=== PATIENT | female | born 1990 | race Caucasian/White ===

== ENCOUNTER 2018-01-21 10:31 | Emergency (ER) | payer BC ==
--- NOTE | 2018-01-21 11:05 | EDPHY ---
General Time Seen by Provider: 01/21/18 10:44 Narrative: CHIEF COMPLAINT: Wound check HISTORY OF PRESENT ILLNESS: Patient presents by private vehicle with complaints of wound check and delayed closure. She reports a dog bite to left index finger greater than 48 hr ago. She was seen here and treated for this. Tdap updated. She has been on Augmentin since then. She has minimal pain. She has no redness, warmth or fever. No difficulty been or straightening the finger. No streaking of the hands, wrist or forearm. No fever. No chills. She denies systemic complaints. She is here asking for the wound to be evaluated for closure. No associated complaints or modifying factors. TIME OF INJURY: Greater than 48 hr ago TETANUS STATUS: Updated 2 days ago MEDICAL/SURGICAL/SOCIAL HISTORY: Uncomplicated. Right-hand dominant. Nonsmoker. Nondiabetic. REVIEW OF SYSTEMS: Ten systems reviewed and are negative unless otherwise noted in the HPI EXAMINATION General Appearance: Alert, no distress Head: normocephalic, atraumatic Cardiovascular: Radial pulses are symmetric. Brisk cap refill the fingers left hand with no cyanosis or pallor. Neurological: A&O, 2 point and light sensory symmetric, inspector insulation and interossei strength symmetric Skin: Warm and dry, no rash. 2 cm laceration with jagged margins and 2 mm distraction of the borders. No foreign body. No bleeding. No surrounding cellulitis, warmth, induration or purulence. Extremities: Nontender, no pedal edema DIFFERENTIAL DIAGNOSES: Including but not limited to laceration, laceration complication, laceration foreign body, laceration with deep tissue injury MDM: 10:45 a.m. Visit for wound evaluation and delayed closure after dog bite greater than 48 hr ago. Her finger appears to have had too much bacitracin on it but there is no signs of infection or dehiscence. No signs of lymphangitis, osteomyelitis or tenosynovitis. We discussed the risk of closure at 48 rather than 72 hr and she would like to proceed with this. She is nonsmoker nondiabetic. She has no evidence of vascular compromise. I have administered a digital block. We will irrigate the wound and evaluate. 11:25 a.m. Wounds have been irrigated and I have re-evaluated. There is no signs of infection. Proceed with closure of the finger without difficulty. We discussed specific wound care. We discussed continuation of Augmentin. We discussed ED precautions for redness, warmth, fever, difficulty been or straightening the finger. We discussed light activity for the duration of the sutures. She will return here in 7-10 days for suture removal. She is comfortable this plan. She is well-appearing and discharged home stable condition. PROCEDURE: Digital Block Indication: Finger laceration Consent: Verbal Location: Left index Anesthesia: Lidocaine 1% plain, 0.25% Marcaine plain, 5mL Description: Base of the finger was prepped. The above was infused without difficulty. Tolerated well. Good anesthesia. Complications: None PROCEDURE: Laceration repair, delayed closure Consent: Verbal Location: Left index finger Length of repair: 2.5 cm Complexity: Complex Layer involvement: Single Anesthesia: Digital block Irrigation: Extensive Debridement: None Procedure description: Following good anesthesia, the wound was copiously irrigated. Wound bed was explored with a sterile glove, and there is no foreign body noted. Wound borders were approximated well with good hemostasis. Tolerated well without complication. Suture/Staple material: 5-0 Prolene, 6 simple interrupted sutures Wound care: Routine as discussed Suture/Staple removal: 7-10 Days SUPERVISION: This patient was independently evaluated without direct involvement of or examination by the attending physician. ED Precautions: Worsening pain. Erythema, edema, cyanosis, pallor, paresthesia or anesthesia. - History Smoking Status: Never smoked - Objective Vital Signs: Initial Vital Signs Temperature (C) 97.9 F 01/21/18 10:34 Heart Rate 63 01/21/18 10:34 Respiratory Rate 16 01/21/18 10:34 Blood Pressure 111/75 01/21/18 10:34 O2 Sat (%) 98 01/21/18 10:34 O2 Delivery Mode Room Air Allergies/Adverse Reactions: No Known Allergies Allergy (Unverified 01/21/18 10:34) Home Medications: Medication Instructions Recorded Amoxicillin/Clavulanate Pot 875 mg PO BID #14 tab 01/19/18 [Augmentin 875 MG TAB (*)] Departure - Departure Disposition: Home, Routine, Self-Care Clinical Impression: Dog bite of index finger Qualifiers: Encounter type: initial encounter Qualified Code(s): S61.258A - Open bite of other finger without damage to nail, initial encounter Condition: Good Instructions: Animal Bite (ED), Finger Laceration (ED) Additional Instructions: 1. Thin layer of bacitracin once daily for the next 3 days 2. Keep the wound covered while showering for the next 3 days 3. Daily wound care as discussed 4. Return here for suture removal in 7-10 days 5. Return here for signs of infection as discussed including warmth, redness, fever, drainage from the site 6. return here for increasing pain surrounding the laceration 7. Do not submerge the wound in any water, hot tub, swimming pool until sutures removed 8. Strict ED precautions for signs of infection as discussed Referrals: Anna Humphreys MD [Medical Doctor] - As per Instructions
[2018-01-21 11:49] VITALS: BP 121/76
== END 2018-01-21 11:50 | disposition home or self-care (01) ==
PROC: 0HQGXZZ Repair Left Hand Skin, External Approach (ICD-10-PCS; principal; 2018-01-21)
DX: Z48.00 Encounter for change or removal of nonsurgical wound dressing (principal); S61.25 Open bite of finger without damage to nail